=== PATIENT | female | born 1995 ===

== ENCOUNTER 2017-11-30 17:38 | Emergency (ER) | payer MEDICAID ==
[2017-11-30] MEDS ORDERED: Ciprofloxacin 500 MG Tab ONE (22:30)
[2017-11-30] MEDS ORDERED: Phenazopyridine 100 MG Tab ONE (22:45)
--- NOTE | 2017-12-02 17:54 | EDM.PDOC ---
ED HPI GENERAL MEDICAL PROBLEM - General Chief Complaint: General Stated Complaint: RLQ PAIN, NAUSEA Time Seen by Provider: 11/30/17 20:10 Source of Information: Reports: Patient History Limitations: Reports: No Limitations - History of Present Illness INITIAL COMMENTS - FREE TEXT/NARRATIVE: This is a 22yo F with right lower pelvic discomfort for the past week. Patient states she has some burning sensation of the lower urinary tract area as well. Patient states she is here visiting her for a few days and will be heading home tomorrow. Patient denies any fever or chills. Patient states the pain is a constant 4-6/10 pain. Patient has been once with a miscarriage but has no other pregnancies. Patient is sexually active and there is the possibility of . Patient does state she is on her menstrual cycle. Duration: Week(s): (1), Constant Location: Reports: Pelvis Severity: Mild Improves with: Reports: None Worsens with: Reports: None Associated Symptoms: Reports: No Other Symptoms - Related Data Allergies Allergy/AdvReac Type Severity Reaction Status Date / Time codeine Allergy Nausea Verified 11/30/17 21:55 Home Meds: Home Meds Cetirizine [ZyrTEC] 10 mg PO DAILY 11/30/17 [History] Omeprazole 20 mg PO DAILY 11/30/17 [History] Prenat Vit Comb.10/Iron/Fa/Dha [Vitafol-OB + DHA] 1 tab PO DAILY 11/30/17 [ History] ED ROS GENERAL - Review of Systems Review Of Systems: ROS reveals no pertinent complaints other than HPI. ED EXAM, GI/ABD - Physical Exam Exam: See Below Exam Limited By: No Limitations General Appearance: Alert, WD/WN, No Apparent Distress Eyes: Bilateral: EOMI Ears: Normal External Exam Nose: Normal Inspection Throat/Mouth: Normal Inspection Head: Atraumatic, Normocephalic Neck: Normal Inspection Respiratory/Chest: No Respiratory Distress Cardiovascular: Normal Peripheral Pulses GI/Abdominal Exam: Normal Bowel Sounds, Pelvis Stable, Other (Right lower abdomen closer in pelvic region pain) Rectal (Female) Exam: Deferred Extremities: Normal Inspection Neurological: Alert, Oriented Psychiatric: Normal Affect, Normal Mood Course - Orders/Labs/Meds Labs: Laboratory Tests 11/30/17 11/30/17 Range/Units 20:54 21:40 Urine Color Yellow Urine Appearance Clear (CLEAR) Urine pH 5.5 (5.0-8.0) Ur Specific White >= 1.030 (1.003-1.030) Urine Protein Negative (NEGATIVE) mg/dL Urine Glucose (UA) Negative (NEGATIVE) mg/dL Urine Ketones Negative (NEGATIVE) mg/dL Urine Occult Blood Moderate H (NEGATIVE) Urine Nitrite Negative (NEGATIVE) Urine Bilirubin Negative (NEGATIVE) Urine Urobilinogen 0.2 (0.2-1.0) E.U./dL Ur Leukocyte Esterase Negative (NEGATIVE) Urine RBC 5-10 H /HPF Urine WBC 0-5 H /HPF Ur Squamous Epith Cells Few /HPF Urine Bacteria Rare /HPF Urine HCG, Qual Negative (NEGATIVE) Meds: Medications Discontinued Medications Generic Name Dose Route Start Last Admin Trade Name Freq PRN Reason Stop Dose Admin Ciprofloxacin 3,000 mg 11/30/17 22:30 Ciprofloxacin Hcl .ROUTE 11/30/17 22:31 .STK-MED ONE Phenazopyridine HCl 1,200 mg 11/30/17 22:45 Pyridium .ROUTE 11/30/17 22:46 .STK-MED ONE Departure - Departure Time of Disposition: 22:30 Disposition: Home, Self-Care 01 Condition: Good Clinical Impression: Pelvic cramping UTI (urinary tract infection) Qualifiers: Urinary tract infection type: acute cystitis Hematuria presence: with hematuria Qualified Code(s): N30.01 - Acute cystitis with hematuria - Discharge Information Instructions: Urinary Tract Infection, Adult Referrals: PCP,None [Primary Care Provider] - Forms: ED Department Discharge Additional Instructions: Follow up with Primary MD for US of abdomen/pelvis if pain persists. Take Cipro 500mg twice a day until gone Take Phenazopyridine 100mg 3 time a day until gonel Counseled on close monitoring and management. Discussed follow up if symptoms persist or worsen. Patient agrees with follow up and further workup as needed.
== END 2017-11-30 22:45 | disposition home or self-care (01) ==
LOC: LB.ED 17:38
DX: N30.01 Acute cystitis with hematuria (principal); Z79.899 Other long term (current) drug therapy; Z88.5 Allergy status to narcotic agent
CPT/HCPCS: 81001; 81025; 99284; A9270